=== PATIENT | male | born 1970 | race Caucasian/White ===

== ENCOUNTER 2024-01-04 11:48 | Emergency (ER) | payer BC ==
[~2024-01-04] VITALS: Ht 182.9 cm; Wt 66.3 kg
[~2024-01-04 11:48] MED LIST: CEFUROXIME500 MG PO
[2024-01-04] MEDS ORDERED: NEURONTIN300 MG PO (12:06)
[2024-01-04] MEDS: TRAMADOL HCL 50 MG TAB PO ONE (14:02)
[2024-01-04 14:08] VITALS: PULSE 78; RESP 14; TEMP 99.1; O2SAT 99
[2024-01-04] MEDS ORDERED: ULTRAM 50MG50 MG PO (14:12)
== END 2024-01-04 14:30 | disposition home or self-care (01) ==
LOC: FSED 11:55
DX: S52.391A Other fracture of shaft of radius, right arm, initial encounter for closed fracture (principal); M79.631 Pain in right forearm; W01.0XXA Fall on same level from slipping, tripping and stumbling without subsequent striking against object, initial encounter; Y93.01 Activity, walking, marching and hiking; Y92.89 Other specified places as the place of occurrence of the external cause
CPT/HCPCS: 99283